=== PATIENT | female | born 1955 | race Caucasian/White ===

== ENCOUNTER 2022-05-31 15:25 | Emergency (ER) | payer OTHER, SELFPAY ==
--- NOTE | ~2022-05-31 | XR_ITS ---
EXAMINATION: XR chest 2V Exam Date/Time: 05/31/2022 16:30 SLP HISTORY: COUGH Comparison: 10/22/2017. RESULT: Lines, tubes, and devices: Cholecystectomy clips. Lungs and pleura: Clear. Cardiomediastinal silhouette: Stable. Other: No acute osseous or upper abdominal finding. IMPRESSION: No acute cardiopulmonary process. Reviewed, dictated and finalized at location K.
[2022-05-31 15:44] VITALS: BP 147/77; PULSE 90; RESP 20; TEMP 35.6; O2SAT 98
--- NOTE | 2022-05-31 16:44 | ED.URI ---
HPI - URI/Sore Throat General Chief Complaint: Upper Respiratory Infection Stated Complaint: Cough/Chest Congestion Time Seen by Provider: 05/31/22 16:44 Source: patient and RN notes reviewed Mode of arrival: ambulatory Limitations: no limitations History of Present Illness HPI Narrative: 67-year-old female presenting for complaint of cough, chest congestion and sinus congestion over the last 4 days. States at times she feels more short of breath than normal and can hear wheezing. She endorses history of pneumonia and states this feels similar. She has not had pneumonia in 2 years since she had the pneumonia vaccine. She currently denies nausea, vomiting, diarrhea, fever or chills. She is taking Mucinex without relief. MD elicited complaint: cough Related Data Home Medications Medication Instructions Recorded Confirmed albuterol sulfate 2.5 mg/3 mL mg 05/31/22 (0.083 %) solution for nebulization atorvastatin 20 mg tablet mg 05/31/22 clonazepam 1 mg tablet mg 05/31/22 cyclobenzaprine 10 mg tablet mg 05/31/22 diclofenac sodium 75 mg mg PO 05/31/22 tablet,delayed release hydrocodone 10 mg-acetaminophen tablet 05/31/22 325 mg tablet hydrocortisone 2.5 % topical topical 05/31/22 ointment ipratropium bromide 17 inhalation 05/31/22 mcg/actuation HFA aerosol inhaler (Atrovent HFA) levothyroxine 200 mcg tablet mcg 05/31/22 omeprazole 20 mg capsule,delayed mg 05/31/22 release sertraline 100 mg tablet mg 05/31/22 tramadol 50 mg tablet mg 05/31/22 Allergies Allergy/AdvReac Type Severity Reaction Status Date / Time latex Allergy Unknown Unknown Verified 05/31/22 16:10 Sulfa (Sulfonamide Allergy Unknown Unknown Verified 05/31/22 16:10 Antibiotics) Contrast Media Allergy Unknown Unknown Uncoded 05/31/22 16:10 plastic tape Allergy Unknown Rash Uncoded 05/31/22 16:10 raisins Allergy Unknown Rash Uncoded 05/31/22 16:10 Review of Systems Review of Systems: CONSTITUTIONAL: Denies malaise, chills, sweats, fever EYES: Denies visual changes, redness, or discharge ENT: Reports rhinorrhea, congestion, denies sinus pain, otalgia, sore throat CARDIOVASCULAR: Denies chest pain, palpitations, edema RESPIRATORY: Per HPI GASTROINTESTINAL: Denies abdominal pain, nausea, vomiting, diarrhea SKIN: Denies rash or itching MUSCULOSKELETAL: Denies myalgia PMFSH Family History Family History Other Family history of cardiovascular disease Family history of rheumatoid arthritis Hypertension Social History Social History Smoking status: Never smoker Alcohol intake: never Exam Narrative: GENERAL: Ill-appearing, nontoxic EYES: PERRLA, conjunctivae clear ENT: Mucous membranes moist. TMs pearly glez with dull light reflex bilaterally; no tragal tenderness. CHEST: Clear to auscultation, breath sounds equal. No wheezing, rhonchi, rales, or stridor. No respiratory distress, speaks in full sentences. HEART: Regular rate and rhythm. No murmur heard. SKIN: Warm, dry, no rash. NEURO: Alert and oriented x3. PSYCH: Normal mood and affect Course Course Emergency Course: Patient is aware of diagnosis, understands and agrees to treatment plan. Anticipatory guidance given. Patient agrees to follow-up as directed and is aware of reasons to seek care at the emergency department. Portions of this record may have been created with voice recognition software Level of Care: Express Care Visit Vital Signs Vital signs: Vital Signs Temperature 96.1 F L 05/31/22 15:44 Pulse Rate 90 05/31/22 15:44 Respiratory Rate 20 05/31/22 15:44 Blood Pressure 147/77 H 05/31/22 15:44 Pulse Oximetry 98 05/31/22 15:44 Oxygen Delivery Room Air 05/31/22 15:44 Temperature 96.1 F L 05/31/22 15:44 Pulse Rate 90 05/31/22 15:44 Respiratory Rate 20 05/31/22 15:44 Blood Pressure 147/77
== END 2022-05-31 16:55 | disposition home or self-care (01) ==
PROVIDERS: Emergency Provider Nurse Practitioner Family; PCP Internal Medicine
DX: B34.9 Viral infection, unspecified (principal); Z20.822 Contact with and (suspected) exposure to COVID-19
CPT/HCPCS: 71046; 87426; 87804; 99203; C9803; G0463

== ENCOUNTER 2023-06-15 14:46 | Emergency (ER) | payer OTHER, SELFPAY ==
[2023-06-15 14:55] VITALS: BP 156/67; PULSE 104; RESP 20; TEMP 36.7; O2SAT 97
--- NOTE | 2023-06-15 15:21 | ED.GENADULT ---
HPI - General Adult General Chief complaint: Upper Respiratory Infection Stated complaint: Cough/Sore Throat Source: patient, RN notes reviewed and old records reviewed Mode of arrival: ambulatory Limitations: no limitations History of Present Illness HPI narrative: 15-year-old female presents to Express Care with complaint of cough, congestion, myalgia, abdominal discomfort, diarrhea this started late Sunday night. Patient denies chest pain, weakness, dizziness, vomiting, sore throat. MD complaint: Cough\congestion Onset (ago): day(s) (2) Related Data Home Medications Medication Instructions Recorded Confirmed albuterol sulfate 2.5 mg/3 mL 2.5 mg inhalation Q4-6H PRN 05/31/22 (0.083 %) solution for nebulization Wheezing atorvastatin 20 mg tablet 20 mg PO DAILY 05/31/22 clonazepam 1 mg tablet 1 mg PO 05/31/22 cyclobenzaprine 10 mg tablet mg 05/31/22 diclofenac sodium 75 mg 75 mg PO BID 05/31/22 tablet,delayed release hydrocodone 10 mg-acetaminophen tablet 05/31/22 325 mg tablet ipratropium bromide 17 inhalation 05/31/22 mcg/actuation HFA aerosol inhaler (Atrovent HFA) levothyroxine 200 mcg tablet mcg 05/31/22 omeprazole 20 mg capsule,delayed mg 05/31/22 release sertraline 100 mg tablet mg 05/31/22 tramadol 50 mg tablet 50 mg PO Q6-8H PRN Pain 05/31/22 furosemide 40 mg tablet mg 06/15/23 metoprolol tartrate 50 mg tablet 50 mg PO BID 06/15/23 06/15/23 sumatriptan succinate 100 mg tablet mg PO 06/15/23 Allergies Allergy/AdvReac Type Severity Reaction Status Date / Time latex Allergy Unknown Unknown Verified 06/15/23 15:11 Sulfa (Sulfonamide Allergy Unknown Unknown Verified 06/15/23 15:11 Antibiotics) Contrast Media Allergy Unknown Unknown Uncoded 06/15/23 15:11 plastic tape Allergy Unknown Rash Uncoded 06/15/23 15:11 raisins Allergy Unknown Rash Uncoded 06/15/23 15:11 Review of Systems Constitutional: Constitutional: Reports as per HPI, Reports body ache(s), Denies chills, Denies fatigue, Denies fever(s) and Denies headache(s) Eyes: Eyes: Reports no additional eye complaints and Denies blurry vision ENT: Reports as per HPI, Denies vertigo, Denies dizziness, Denies ear discharge, Denies otalgia, Denies facial pain, Denies headache(s), Reports nasal congestion, Reports nasal discharge, Denies sinus pain, Denies sinus pressure and Denies sore throat Cardiovascular: Cardiovascular: Reports no additional cardiovascular complaints, Denies chest pain, Denies chest pain at rest, Denies rapid heart rate and Denies dyspnea Respiratory: Respiratory: Reports as per HPI, Reports chest congestion, Reports cough, Denies pain on inspiration, Denies pain with cough and Denies dyspnea Gastrointestinal: Gastrointestinal: Reports as per HPI, Reports abdominal pain, Reports diarrhea, Denies nausea and Denies vomiting Integumentary/Breasts: Skin/Breast: Denies rash Neurologic: Reports system reviewed and no additional complaints, except as documented, Denies vertigo, Denies dizziness and Denies headache(s) Endocrine: Endocrine: Denies fatigue PMFSH Family History Family History Other Family history of cardiovascular disease Family history of rheumatoid arthritis Hypertension Social History Social History Smoking status: Never smoker Alcohol intake: never Comments At the time of my signature, I reviewed and agree with the nursing past medical, surgical, social, and family history. There is no relevant family history pertinent to the patient complaint. Exam Const: General: cooperative, healthy appearing, no acute distress and well nourished Nutritional Appearance: well nourished Orientation/consciousness: patient oriented x3 Limitations: no limitations HENMT: Head: normal to inspection and normocephalic Ears: external ears normal, TM's normal bilaterally, mastoids dana
== END 2023-06-15 15:34 | disposition home or self-care (01) ==
PROVIDERS: Emergency Provider Registered Nurse; PCP Internal Medicine
DX: J06.9 Acute upper respiratory infection, unspecified (principal); Z20.822 Contact with and (suspected) exposure to COVID-19
CPT/HCPCS: 87426; 87804; 99213; C9803; G0463

== ENCOUNTER 2024-01-23 19:09 | Emergency (ER) | payer OTHER, SELFPAY ==
[2024-01-23 19:16] VITALS: BP 156/83; PULSE 64; RESP 18; TEMP 36.1; O2SAT 98
--- NOTE | 2024-01-23 19:17 | ED.URI ---
HPI - URI/Sore Throat General Chief Complaint: Upper Respiratory Infection Stated Complaint: Congestion/Sore Throat/Cough Time Seen by Provider: 01/23/24 19:17 Source: patient Mode of arrival: ambulatory Limitations: no limitations History of Present Illness HPI Narrative: 68-year-old female presents with complaint of cough, congestion, sore throat, fatigue, headache for 6 days. Afebrile. No chest pain or shortness breath. Taking [id number] DayQuil NyQuil to treat symptoms. All systems reviewed and negative except as noted above. Related Data Home Medications Medication Instructions Recorded Confirmed albuterol sulfate 2.5 mg/3 mL 2.5 mg inhalation Q4-6H PRN 05/31/22 01/23/24 (0.083 %) solution for nebulization Wheezing atorvastatin 20 mg tablet 20 mg PO DAILY 05/31/22 01/23/24 clonazepam 1 mg tablet 1 mg PO BID PRN Anxiety 05/31/22 01/23/24 diclofenac sodium 75 mg 75 mg PO BID 05/31/22 01/23/24 tablet,delayed release hydrocodone 10 mg-acetaminophen 1 tablet PO Q6-8H PRN Pain 05/31/22 01/23/24 325 mg tablet levothyroxine 200 mcg tablet 200 mcg PO DAILY 05/31/22 01/23/24 omeprazole 20 mg capsule,delayed 20 mg PO BID 05/31/22 01/23/24 release sertraline 100 mg tablet 200 mg PO DAILY 05/31/22 01/23/24 tramadol 50 mg tablet 50 mg PO Q6-8H PRN Pain 05/31/22 01/23/24 furosemide 40 mg tablet 40 mg PO DAILY 06/15/23 01/23/24 metoprolol tartrate 50 mg tablet 50 mg PO BID 06/15/23 01/23/24 sumatriptan succinate 100 mg tablet See Rx Instructions .Route .COMPLEX 06/15/23 Allergies Allergy/AdvReac Type Severity Reaction Status Date / Time latex Allergy Unknown Unknown Verified 01/23/24 19:24 Sulfa (Sulfonamide Allergy Unknown Unknown Verified 01/23/24 19:24 Antibiotics) Contrast Media Allergy Unknown Unknown Uncoded 01/23/24 19:24 plastic tape Allergy Unknown Rash Uncoded 01/23/24 19:24 raisins Allergy Unknown Rash Uncoded 01/23/24 19:24 Review of Systems Review of Systems: CONSTITUTIONAL: Denies fever, chills, or sweats. Reports fatigue. EYES: Denies visual changes, redness, or discharge. ENT: Reports rhinorrhea, congestion, sore throat. Denies otalgia. CARDIOVASCULAR: Denies chest pain, palpitations, or edema. RESPIRATORY: Denies cough or dyspnea. GASTROINTESTINAL: Denies abdominal pain, nausea, vomiting, or diarrhea. GENITOURINARY: Denies dysuria or hematuria. SKIN: Denies rash or itching. MUSCULOSKELETAL: Denies back pain, joint pain, or myalgia. NEUROLOGIC: Reports headache. Denies numbness, or weakness. PSYCHIATRIC: Denies anxiety or depression. All other systems reviewed are negative, except as documented in HPI. [facility] Family History Family History Other Family history of cardiovascular disease Family history of rheumatoid arthritis Hypertension Social History Social History Smoking status: Never smoker Alcohol intake: never Comments At time of signature, agree with nursing past medical, surgical, social and family history. There is no relevant family history pertinent to the presenting complaint. Exam Narrative: GENERAL: This is a well-nourished, well-developed patient, ill-appearing but no acute distress HEAD: normocephalic, atraumatic. EYES: PERRL. Sclera clear/white. Vision is grossly intact. EARS: External ears normal, auditory canals clear and without drainage, TMs normal without perforation. Hearing grossly intact. NOSE: External nose normal with no obvious nasal discharge, nares without redness, no rhinorrhea. THROAT: Mucous membranes moist, posterior pharynx clear. NECK: Neck supple, non-tender without lymphadenopathy, masses or thyromegaly. CARDIOVASCULAR: Regular rate and rhythm without murmurs, gallops, or rubs. RESPIRATORY: Clear to auscultation. Breath sounds equal bilaterally. No wheezes, rales, or rhonchi. SKIN: warm, Dry, intact with no suspi
== END 2024-01-23 19:55 | disposition home or self-care (01) ==
PROVIDERS: Emergency Provider Nurse Practitioner Family; PCP Internal Medicine
DX: J06.9 Acute upper respiratory infection, unspecified (principal); Z20.822 Contact with and (suspected) exposure to COVID-19
CPT/HCPCS: 87426; 99213; G0463